=== PATIENT | male | born 1960 | race Caucasian/White ===

== ENCOUNTER 2017-04-27 09:29 | Emergency (ER) | payer MEDICARE, OTHER ==
[~2017-04-27] VITALS: Ht 167.6 cm; Wt 67.9 kg
[~2017-04-27 09:29] MED LIST: HYDR-3965 PO; METF10002 PO
[2017-04-27 09:35] VITALS: BP 185/111
== END 2017-04-27 10:45 | disposition home or self-care (01) ==
LOC: ER 09:30
DX: G89.29 Other chronic pain (principal); E78.00 Pure hypercholesterolemia, unspecified; I10 Essential (primary) hypertension; E11.9 Type 2 diabetes mellitus without complications; M06.9 Rheumatoid arthritis, unspecified; Z79.84 Long term (current) use of oral hypoglycemic drugs
CPT/HCPCS: 96372; 99283; J2270

== ENCOUNTER 2017-05-04 09:09 | Emergency (ER) | payer MEDICARE, OTHER ==
[~2017-05-04] VITALS: Ht 170.2 cm; Wt 69.9 kg
[2017-05-04] MEDS ORDERED: ketorolac trometh inj. 60 MG/2 ML VIAL IM ONE (12:15)
[2017-05-04] MEDS ORDERED: HYDROmorphone inj. 0.5 MG/0.5 ML DISP.SYRIN IM ONE (12:15)
[2017-05-04] MEDS ORDERED: HYDROmorphone 1 mg/ml syringe IM ONE (12:20)
[2017-05-04 12:54] VITALS: BP 172/98
== END 2017-05-04 13:01 | disposition home or self-care (01) ==
LOC: ER 09:09
DX: M06.9 Rheumatoid arthritis, unspecified (principal); G89.29 Other chronic pain; F17.200 Nicotine dependence, unspecified, uncomplicated; E78.00 Pure hypercholesterolemia, unspecified; I10 Essential (primary) hypertension; E11.9 Type 2 diabetes mellitus without complications; M19.90 Unspecified osteoarthritis, unspecified site; Z79.899 Other long term (current) drug therapy
CPT/HCPCS: 96372; 99284; J1170; J1885

== ENCOUNTER 2017-05-06 04:23 | Emergency (ER) | payer MEDICARE, OTHER ==
[~2017-05-06] VITALS: Ht 170.2 cm; Wt 70.4 kg
[2017-05-06] MEDS ORDERED: mag hydrox/Alum hydrox/simeth 30ml oral suspension PO ONE (04:50)
[2017-05-06] MEDS ORDERED: pantoprazole 40mg Tablet.DR PO ONE (04:50)
[2017-05-06] MEDS ORDERED: LIDOcaine Viscous 15ml cup PO ONE (04:50)
[2017-05-06 05:07] LABS: BASOPHILS # (AUTO) 0.1 X10'3 (0-0.2); BASOPHILS % (AUTO) 0.6 % (0-1); EOSINOPHILS # (AUTO) 0.5 X10'3 (0-0.9); EOSINOPHILS % (AUTO) 5.6 % (0-6); HEMATOCRIT 25.4 % (42.0-52.0); HEMOGLOBIN 8.2 g/dl (14.0-17.9); LYMPHOCYTES # (AUTO) 2.4 X10'3 (1.1-4.8); LYMPHOCYTES % (AUTO) 25.8 % (21-51); MEAN CORPUSCULAR HEMOGLOBIN 25.6 PG (27.0-31.0); MEAN CORPUSCULAR HGB CONC 32.2 % (33.0-36.5); MEAN CORPUSCULAR VOLUME 79.6 FL (78-98); MEAN PLATELET VOLUME 7.2 FL (7.4-10.4); MONOCYTES # (AUTO) 0.4 X10'3 (0-0.9); MONOCYTES % (AUTO) 3.8 % (2-12); NEUTROPHILS # (AUTO) 6.1 X10'3 (1.8-7.7); NEUTROPHILS % (AUTO) 64.2 % (42-75); PLATELET COUNT 747 X10'3 (140-440); RED BLOOD COUNT 3.19 X10'6 (4.70-6.10); RED CELL DISTRIBUTION WIDTH 16.5 % (11.5-14.5); WHITE BLOOD COUNT 9.4 X10'3 (4.5-11.0)
[2017-05-06 05:37] LABS: ALANINE AMINOTRANSFERASE 17 U/L (12-78); ALBUMIN 1.8 G/DL (3.4-5.0); ALBUMIN/GLOBULIN RATIO 0.3 (1.1-1.5); ALKALINE PHOSPHATASE 164 IU/L (46-116); ANION GAP 6 (8-16); ASPARTATE AMINO TRANSFERASE 13 U/L (10-37); BILIRUBIN,TOTAL 0.2 MG/DL (0.1-1.0); BLOOD UREA NITROGEN 35 MG/DL (7-18); BUN/CREATININE RATIO 19.1 (5.4-32.0); CALCIUM 8.5 MG/DL (8.5-10.1); CHLORIDE 107 MMOL/L (99-107); CREATININE 1.83 MG/DL (0.60-1.10); GLUCOSE 161 MG/DL (70-104); LIPASE 196 U/L (73-393); MAGNESIUM 1.5 MG/DL (1.5-2.4); POTASSIUM 5.2 MMOL/L (3.5-5.1); SODIUM 133 MMOL/L (135-145); TOTAL CARBON DIOXIDE 20.3 MMOL/L (24-32); TOTAL PROTEIN 7.3 G/DL (6.4-8.2); eGFR 38 ML/MIN
[2017-05-06 05:48] VITALS: BP 158/89
[2017-05-06] MEDS ORDERED: OMEP40CA37 PO (05:51)
== END 2017-05-06 06:20 | disposition home or self-care (01) ==
LOC: ER 04:24
DX: I12.9 Hypertensive chronic kidney disease with stage 1 through stage 4 chronic kidney disease, or unspecified chronic kidney disease (principal); N18.9 Chronic kidney disease, unspecified; D63.1 Anemia in chronic kidney disease; E87.5 Hyperkalemia; R10.13 Epigastric pain; E11.22 Type 2 diabetes mellitus with diabetic chronic kidney disease; Z79.84 Long term (current) use of oral hypoglycemic drugs; E78.00 Pure hypercholesterolemia, unspecified; M06.9 Rheumatoid arthritis, unspecified
CPT/HCPCS: 36415; 80053; 83690; 83735; 85025; 99284

== ENCOUNTER 2017-05-15 07:21 | Emergency (ER) | payer MEDICARE, OTHER ==
[~2017-05-15] VITALS: Ht 5535.5 cm; Wt 72.7 kg
[~2017-05-15 07:21] MED LIST changes: +OMEP40CA37 PO
[2017-05-15] MEDS ORDERED: HYDROmorphone 1 mg/ml syringe IM ONE (08:05)
[2017-05-15] MEDS ORDERED: ketorolac trometh inj. 60 MG/2 ML VIAL IM ONE (08:05)
[2017-05-15 09:24] VITALS: BP 180/110
== END 2017-05-15 09:25 | disposition home or self-care (01) ==
LOC: ER 07:22
DX: M06.9 Rheumatoid arthritis, unspecified (principal); E11.9 Type 2 diabetes mellitus without complications; I10 Essential (primary) hypertension; E78.00 Pure hypercholesterolemia, unspecified; F17.200 Nicotine dependence, unspecified, uncomplicated; Z86.73 Personal history of transient ischemic attack (TIA), and cerebral infarction without residual deficits
CPT/HCPCS: 96372; 99284; J1170; J1885

== ENCOUNTER 2017-05-21 13:32 | Emergency (ER) | payer MEDICARE, OTHER ==
[~2017-05-21] VITALS: Ht 170.2 cm; Wt 74.1 kg
[~2017-05-21 13:32] MED LIST changes: -HYDR-3965 PO
[2017-05-21 16:29] LABS: BASOPHILS # (AUTO) 0.1 X10'3 (0-0.2); BASOPHILS % (AUTO) 0.7 % (0-1); EOSINOPHILS # (AUTO) 0.1 X10'3 (0-0.9); EOSINOPHILS % (AUTO) 0.6 % (0-6); HEMATOCRIT 25.3 % (42.0-52.0); HEMOGLOBIN 8.5 g/dl (14.0-17.9); LYMPHOCYTES # (AUTO) 2.1 X10'3 (1.1-4.8); LYMPHOCYTES % (AUTO) 18.3 % (21-51); MEAN CORPUSCULAR HGB CONC 33.6 % (33.0-36.5); MEAN CORPUSCULAR VOLUME 77.5 FL (78-98); MEAN PLATELET VOLUME 7.5 FL (7.4-10.4); MONOCYTES # (AUTO) 0.3 X10'3 (0-0.9); MONOCYTES % (AUTO) 2.5 % (2-12); NEUTROPHILS # (AUTO) 8.7 X10'3 (1.8-7.7); NEUTROPHILS % (AUTO) 77.9 % (42-75); PLATELET COUNT 555 X10'3 (140-440); RED BLOOD COUNT 3.26 X10'6 (4.70-6.10); RED CELL DISTRIBUTION WIDTH 15.9 % (11.5-14.5); WHITE BLOOD COUNT 11.3 X10'3 (4.5-11.0)
[2017-05-21 16:46] LABS: ALANINE AMINOTRANSFERASE 28 U/L (12-78); ALBUMIN/GLOBULIN RATIO 0.4 (1.1-1.5); ALKALINE PHOSPHATASE 193 IU/L (46-116); ANION GAP 10 (8-16); ASPARTATE AMINO TRANSFERASE 19 U/L (10-37); BILIRUBIN,TOTAL 0.2 MG/DL (0.1-1.0); BLOOD UREA NITROGEN 50 MG/DL (7-18); CALCIUM 8.1 MG/DL (8.5-10.1); CHLORIDE 101 MMOL/L (99-107); GLUCOSE 203 MG/DL (70-104); POTASSIUM 4.6 MMOL/L (3.5-5.1); SODIUM 133 MMOL/L (135-145); TOTAL PROTEIN 7.1 G/DL (6.4-8.2); eGFR 27 ML/MIN
[2017-05-21 17:17] LABS: D-DIMER 5.64 MG/L FEU (0-0.50)
[2017-05-21 17:28] VITALS: BP 167/89
== END 2017-05-21 17:31 | disposition home or self-care (01) ==
LOC: ER 13:32
DX: I13.0 Hypertensive heart and chronic kidney disease with heart failure and stage 1 through stage 4 chronic kidney disease, or unspecified chronic kidney disease (principal); E11.22 Type 2 diabetes mellitus with diabetic chronic kidney disease; N18.9 Chronic kidney disease, unspecified; I50.9 Heart failure, unspecified; E11.65 Type 2 diabetes mellitus with hyperglycemia; D64.9 Anemia, unspecified; D47.3 Essential (hemorrhagic) thrombocythemia; R59.1 Generalized enlarged lymph nodes; G43.909 Migraine, unspecified, not intractable, without status migrainosus; E78.00 Pure hypercholesterolemia, unspecified; M19.90 Unspecified osteoarthritis, unspecified site; F17.200 Nicotine dependence, unspecified, uncomplicated; Z86.73 Personal history of transient ischemic attack (TIA), and cerebral infarction without residual deficits; K21.9 Gastro-esophageal reflux disease without esophagitis
CPT/HCPCS: 36415; 80053; 83880; 85025; 85379; 93971; 99285

== ENCOUNTER 2017-06-12 22:36 | Inpatient (IN) | payer MEDICARE, OTHER ==
[~2017-06-12] VITALS: Ht 170.2 cm; Wt 150.0 kg
[~2017-06-12 22:36] MED LIST changes: -OMEP40CA37 PO
[2017-06-12] MEDS ORDERED: normal saline 1000ML IV soln IVB ONE (22:50)
[2017-06-12 23:01] LABS: BASOPHILS # (AUTO) 0.2 X10'3 (0-0.2); BASOPHILS % (AUTO) 3.3 % (0-1); EOSINOPHILS # (AUTO) 0.3 X10'3 (0-0.9); EOSINOPHILS % (AUTO) 4.8 % (0-6); HEMATOCRIT 22.2 % (42.0-52.0); HEMOGLOBIN 7.1 g/dl (14.0-17.9); LYMPHOCYTES # (AUTO) 1.6 X10'3 (1.1-4.8); LYMPHOCYTES % (AUTO) 23.3 % (21-51); MEAN CORPUSCULAR HEMOGLOBIN 24.5 PG (27.0-31.0); MEAN CORPUSCULAR HGB CONC 31.9 % (33.0-36.5); MEAN CORPUSCULAR VOLUME 76.6 FL (78-98); MEAN PLATELET VOLUME 6.6 FL (7.4-10.4); MONOCYTES # (AUTO) 0.3 X10'3 (0-0.9); MONOCYTES % (AUTO) 4.2 % (2-12); NEUTROPHILS # (AUTO) 4.5 X10'3 (1.8-7.7); NEUTROPHILS % (AUTO) 64.4 % (42-75); PLATELET COUNT 529 X10'3 (140-440); RED CELL DISTRIBUTION WIDTH 18.5 % (11.5-14.5)
[2017-06-12 23:11] LABS: ANISOCYTOSIS 2+; ELLIPTOCYTES FEW; HYPOCHROMASIA 1+; MICROCYTOSIS 2+; PLATELET ESTIMATE INCREASED; POLYCHROMASIA FEW
[2017-06-12 23:12] LABS: POIKILOCYTOSIS FEW
[2017-06-12 23:14] LABS: PARTIAL THROMBOPLASTIN TIME 35 SECONDS (22-32); PROTHROMBIN TIME 10.5 SECONDS (9.0-12.0)
[2017-06-12 23:26] LABS: ALANINE AMINOTRANSFERASE 16 U/L (12-78); ALBUMIN 1.7 G/DL (3.4-5.0); ALBUMIN/GLOBULIN RATIO 0.3 (1.1-1.5); ALKALINE PHOSPHATASE 161 IU/L (46-116); ANION GAP 11 (8-16); BILIRUBIN,TOTAL 0.2 MG/DL (0.1-1.0); BLOOD UREA NITROGEN 58 MG/DL (7-18); BUN/CREATININE RATIO 19.1 (5.4-32.0); CHLORIDE 107 MMOL/L (99-107); CREATININE 3.04 MG/DL (0.60-1.10); GLUCOSE 132 MG/DL (70-104); MAGNESIUM 1.7 MG/DL (1.5-2.4); SODIUM 133 MMOL/L (135-145); TOTAL CARBON DIOXIDE 15.2 MMOL/L (24-32); TOTAL PROTEIN 6.8 G/DL (6.4-8.2); eGFR 21 ML/MIN
[2017-06-12 23:29] LABS: ASPARTATE AMINO TRANSFERASE 15 U/L (10-37)
[2017-06-12 23:31] LABS: POTASSIUM 8.1 MMOL/L (3.5-5.1)
[2017-06-12] MEDS ORDERED: calcium gluconate inj. 3 GM in normal saline 100ml IV soln 70 ML IV ONE (23:33)
[2017-06-12] MEDS ORDERED: dextrose 50%-water 50ml dispensing syringe IV ONE (23:35)
[2017-06-12] MEDS ORDERED: insulin regular, human 10 units/0.1 ml syringe IV ONE (23:35)
[2017-06-12] MEDS ORDERED: sodium bicarbonate (8.4%) 1 mEq/ml syringe IV ONE (23:35)
[2017-06-12] MEDS ORDERED: calcium gluconate 0.46mEq/mL (100mg/mL) inj IV ONE (23:37)
[2017-06-12] MEDS ORDERED: sodium polystyrene sulfonate 15gm/60ml oral suspension PO ONE (23:45)
[2017-06-13] VITALS (10 sets, daily range): BP systolic 132–159; BP diastolic 64–90
[2017-06-13 00:09] LABS: ALBUMIN 1.8 G/DL (3.4-5.0); ANION GAP 11 (8-16); BLOOD UREA NITROGEN 56 MG/DL (7-18); BUN/CREATININE RATIO 19.2 (5.4-32.0); CALCIUM 8.6 MG/DL (8.5-10.1); CHLORIDE 108 MMOL/L (99-107); CREATININE 2.91 MG/DL (0.60-1.10); GLUCOSE 116 MG/DL (70-104); SODIUM 135 MMOL/L (135-145); eGFR 22 ML/MIN
[2017-06-13 00:12] LABS: POTASSIUM 8.2 MMOL/L (3.5-5.1)
[2017-06-13 00:53] LABS: CLARITY,URINE CLEAR (Clear); COLOR,URINE YELLOW (Yellow); GLUCOSE, URINE NEGATIVE (Neg); KETONES,URINE NEGATIVE (Neg); LEUKOCYTE ESTERASE ,URINE NEGATIVE (Neg); NITRITES, URINE NEGATIVE (Neg); OCCULT BLOOD,URINE TRACE-INTACT (Neg); PROTEIN,URINE >=300 mg/dl (Neg); UROBILINOGEN,URINE 0.2 E.U/dL (0.2-1.0)
[2017-06-13 00:57] LABS: UA COLLECTION TYPE CLN CATCH MIDSTREAM
[2017-06-13 00:58] LABS: RBC,URINE 0-2 /HPF (0-2); WBC,URINE 0-4 /HPF (0-4)
[2017-06-13 00:59] LABS: BACTERIA,URINE NONE SEEN /HPF (Neg); MUCUS STRANDS NONE SEEN /LPF (Neg); SQUAMOUS EPITHELIAL CELL,UR FEW /LPF (FEW)
[2017-06-13] MEDS ORDERED: normal saline 1000ML IV soln IVB ONE (01:00)
[2017-06-13 01:03] LABS: URINE AMPHETAMINE SCREEN NEGATIVE (Neg); URINE BARBITUATE SCREEN NEGATIVE (Neg); URINE BENZODIAZEPINES SCREEN NEGATIVE (Neg); URINE CANNABINOID SCREEN NEGATIVE (Neg); URINE COCAINE SCREEN NEGATIVE (Neg); URINE METHADONE SCREEN NEGATIVE (Neg); URINE OPIATE SCREEN POSITIVE (Neg); URINE PHENCYCLIDINE SCREEN NEGATIVE (Neg)
[2017-06-13] MEDS ORDERED: dextrose 50%-water 50ml dispensing syringe IV ONE (01:20)
[2017-06-13 02:05] LABS: ABG BASE EXCESS -12.7 mmol/L (-2.0-3.0); ABG HCO3 13.6 mmol/L (22.0-26.0); ABG OXYGEN SATURATION 97.1 % (95-98); ABG PCO2 (T) 31.8 mmHg (35.0-48.0); ABG PH (T) 7.246 (7.350-7.450); ALLEN'S TEST Positive; FCOHb 3.4 % (0.5-1.5); FMetHb 0.3 % (0.3-1.12); FO2Hb 93.5 % (94-100); PATIENT TEMPERATURE 36.7; RESPIRATORY RATE (OBSERVED) 18 b/min
[2017-06-13] MEDS ORDERED: HYDROcodone/acetaminophen 10/325mg tab PO ONE (02:05)
[2017-06-13] MEDS ORDERED: sodium bicarbonate (8.4%) 1 mEq/ml syringe IV ONE (02:20)
[2017-06-13] MEDS ORDERED: morphine 2 MG/ML inj. syringe IV PRN (02:30)
[2017-06-13] MEDS ORDERED: acetaminophen 325mg tablet PO PRN (02:30)
[2017-06-13] MEDS ORDERED: ondansetron/PF 4mg/2ml inj IV PRN (02:30)
[2017-06-13] MEDS ORDERED: albuterol 2.5 MG/3 ML nebule NEB ONE (02:30)
[2017-06-13] MEDS ORDERED: glucagon, human recombinant 1mg kit SUBCUT PRN (02:35)
[2017-06-13] MEDS ORDERED: dextrose ORAL solution 15 GM/59 ML bottle PO PRN ×2 (02:35)
[2017-06-13] MEDS ORDERED: dextrose 50%-water 50ml dispensing syringe IV PRN ×2 (02:35)
[2017-06-13] MEDS ORDERED: MESSAGE TO PHARMACY PO ONE (02:35)
[2017-06-13 02:43] LABS: UA EOSINOPHILS FEW EOS /HPF
[2017-06-13 03:02] LABS: TOTAL PROTEIN,URINE RANDOM 275.5 MG/DL
[2017-06-13] MEDS: sodium bicarbonate (8.4%) inj. 150 MEQ in dextrose 5%-water 1,000 ML IV SCH ×3 (03:30→19:12)
[2017-06-13] MEDS: fludrocortisone acetate 0.1mg tablet PO SCH ×2 (03:46→07:34)
[2017-06-13 07:46] LABS: ALBUMIN 1.7 G/DL (3.4-5.0); ANION GAP 12 (8-16); BLOOD UREA NITROGEN 47 MG/DL (7-18); BUN/CREATININE RATIO 19.7 (5.4-32.0); CALCIUM 8.2 MG/DL (8.5-10.1); CHLORIDE 110 MMOL/L (99-107); CREATININE 2.38 MG/DL (0.60-1.10); GLUCOSE 111 MG/DL (70-104); SODIUM 140 MMOL/L (135-145); TOTAL CARBON DIOXIDE 18.4 MMOL/L (24-32); eGFR 28 ML/MIN
[2017-06-13 07:48] LABS: POTASSIUM 6.2 MMOL/L (3.5-5.1)
[2017-06-13] MEDS: HYDROcodone/acetaminophen 5mg/325mg tablet PO PRN ×2 (10:57→23:15)
[2017-06-13 11:53] LABS: BASOPHILS # (AUTO) 0.2 X10'3 (0-0.2); BASOPHILS % (AUTO) 2.1 % (0-1); EOSINOPHILS # (AUTO) 0.4 X10'3 (0-0.9); EOSINOPHILS % (AUTO) 5.1 % (0-6); HEMATOCRIT 22.6 % (42.0-52.0); HEMOGLOBIN 7.3 g/dl (14.0-17.9); LYMPHOCYTES # (AUTO) 1.3 X10'3 (1.1-4.8); LYMPHOCYTES % (AUTO) 17.4 % (21-51); MEAN CORPUSCULAR HEMOGLOBIN 24.4 PG (27.0-31.0); MEAN CORPUSCULAR HGB CONC 32.5 % (33.0-36.5); MEAN CORPUSCULAR VOLUME 75.2 FL (78-98); MEAN PLATELET VOLUME 6.8 FL (7.4-10.4); MONOCYTES # (AUTO) 0.2 X10'3 (0-0.9); MONOCYTES % (AUTO) 3.1 % (2-12); NEUTROPHILS # (AUTO) 5.3 X10'3 (1.8-7.7); NEUTROPHILS % (AUTO) 72.3 % (42-75); PLATELET COUNT 537 X10'3 (140-440); RED BLOOD COUNT 3.01 X10'6 (4.70-6.10); RED CELL DISTRIBUTION WIDTH 18.5 % (11.5-14.5); WHITE BLOOD COUNT 7.4 X10'3 (4.5-11.0)
[2017-06-13 13:20] LABS: ALBUMIN 1.4 G/DL (3.4-5.0); ANION GAP 10 (8-16); BLOOD UREA NITROGEN 39 MG/DL (7-18); BUN/CREATININE RATIO 19.6 (5.4-32.0); CALCIUM 7.8 MG/DL (8.5-10.1); CHLORIDE 108 MMOL/L (99-107); CREATININE 1.99 MG/DL (0.60-1.10); GLUCOSE 160 MG/DL (70-104); POTASSIUM 5.2 MMOL/L (3.5-5.1); SODIUM 139 MMOL/L (135-145); TOTAL CARBON DIOXIDE 20.6 MMOL/L (24-32); eGFR 35 ML/MIN
[2017-06-13 15:31] LABS: % IRON SATURATION 19 % (11-46); FERRITIN 116 NG/ML (26-388); IRON 33 UG/DL (53-167); TOTAL IRON BINDING CAPACITY 172 UG/DL (259-388)
[2017-06-13] MEDS: morphine 4 MG/ML inj SYRINge IV PRN ×2 (15:57→20:23)
[2017-06-13 17:07] LABS: SODIUM,URINE RANDOM 73 MEQ/L
[2017-06-13] MEDS ORDERED: QUET25TA34 PO (17:27)
[2017-06-13] MEDS ORDERED: BACDS PO (17:27)
[2017-06-13] MEDS ORDERED: DOXA1TAB2 PO (17:27)
[2017-06-13] MEDS ORDERED: FURO40TA4 PO (17:27)
[2017-06-13] MEDS ORDERED: HYDR-3972 PO (17:27)
[2017-06-13] MEDS ORDERED: ATOR40TA72 PO (17:27)
[2017-06-13] MEDS ORDERED: GABA-532 PO (17:27)
[2017-06-13] MEDS ORDERED: METH2.5T55 PO (17:27)
[2017-06-13] MEDS ORDERED: LISI10TA4 PO (17:27)
[2017-06-13] MEDS: heparin, porcine 5000 units/ml vial SQ SCH (19:12)
[2017-06-13 20:02] LABS: ALBUMIN 1.6 G/DL (3.4-5.0); ANION GAP 10 (8-16); BLOOD UREA NITROGEN 36 MG/DL (7-18); BUN/CREATININE RATIO 17.1 (5.4-32.0); CHLORIDE 104 MMOL/L (99-107); CREATININE 2.11 MG/DL (0.60-1.10); GLUCOSE 196 MG/DL (70-104); POTASSIUM 5.3 MMOL/L (3.5-5.1); SODIUM 136 MMOL/L (135-145); TOTAL CARBON DIOXIDE 21.6 MMOL/L (24-32); eGFR 33 ML/MIN
[2017-06-13] MEDS: insulin glargine (Lantus) pen - multi-dose SQ SCH (20:29)
[2017-06-14] MEDS: morphine 4 MG/ML inj SYRINge IV PRN ×4 (00:20→19:11)
[2017-06-14 02:00] VITALS: BP 154/83
[2017-06-14] MEDS: sodium bicarbonate (8.4%) inj. 150 MEQ in dextrose 5%-water 1,000 ML IV SCH ×2 (02:46→08:59)
[2017-06-14 05:43] LABS: BASOPHILS # (AUTO) 0.1 X10'3 (0-0.2); BASOPHILS % (AUTO) 2.5 % (0-1); EOSINOPHILS # (AUTO) 0.2 X10'3 (0-0.9); EOSINOPHILS % (AUTO) 4.3 % (0-6); HEMATOCRIT 22.1 % (42.0-52.0); HEMOGLOBIN 7.3 g/dl (14.0-17.9); LYMPHOCYTES # (AUTO) 1.8 X10'3 (1.1-4.8); LYMPHOCYTES % (AUTO) 33.1 % (21-51); MEAN CORPUSCULAR HEMOGLOBIN 24.8 PG (27.0-31.0); MEAN CORPUSCULAR HGB CONC 33.1 % (33.0-36.5); MEAN PLATELET VOLUME 6.8 FL (7.4-10.4); MONOCYTES # (AUTO) 0.2 X10'3 (0-0.9); MONOCYTES % (AUTO) 3.4 % (2-12); NEUTROPHILS # (AUTO) 3.1 X10'3 (1.8-7.7); NEUTROPHILS % (AUTO) 56.7 % (42-75); PLATELET COUNT 534 X10'3 (140-440); RED BLOOD COUNT 2.94 X10'6 (4.70-6.10); RED CELL DISTRIBUTION WIDTH 17.6 % (11.5-14.5); WHITE BLOOD COUNT 5.4 X10'3 (4.5-11.0)
[2017-06-14 05:53] LABS: ALBUMIN 1.3 G/DL (3.4-5.0); ANION GAP 8 (8-16); BLOOD UREA NITROGEN 29 MG/DL (7-18); BUN/CREATININE RATIO 18.7 (5.4-32.0); CALCIUM 7.9 MG/DL (8.5-10.1); CHLORIDE 106 MMOL/L (99-107); CREATININE 1.55 MG/DL (0.60-1.10); GLUCOSE 95 MG/DL (70-104); MAGNESIUM 1.2 MG/DL (1.5-2.4); PHOSPHORUS 3.2 MG/DL (2.3-4.5); SODIUM 141 MMOL/L (135-145); TOTAL CARBON DIOXIDE 27.3 MMOL/L (24-32); eGFR 46 ML/MIN
[2017-06-14 06:00] VITALS: BP 150/78
[2017-06-14] MEDS ORDERED: magnesium Cl slow-release 64mg tablet PO PRN (06:55)
[2017-06-14] MEDS ORDERED: potassium Cl 20 mEq SR tablet PO PRN ×2 (06:55)
[2017-06-14] MEDS: heparin, porcine 5000 units/ml vial SQ SCH ×2 (07:39→19:15)
[2017-06-14] MEDS: insulin Lispro (HumaLOG) vial - multi-dose SQ SCH ×2 (08:46→13:31)
[2017-06-14 11:00] VITALS: BP 160/83
[2017-06-14 15:00] VITALS: BP 130/69
[2017-06-14 17:09] LABS: BASOPHILS # (AUTO) 0.1 X10'3 (0-0.2); BASOPHILS % (AUTO) 1.8 % (0-1); EOSINOPHILS # (AUTO) 0.1 X10'3 (0-0.9); EOSINOPHILS % (AUTO) 1.7 % (0-6); HEMATOCRIT 24.1 % (42.0-52.0); HEMOGLOBIN 7.9 g/dl (14.0-17.9); LYMPHOCYTES # (AUTO) 1.3 X10'3 (1.1-4.8); LYMPHOCYTES % (AUTO) 21.6 % (21-51); MEAN CORPUSCULAR HEMOGLOBIN 24.7 PG (27.0-31.0); MEAN CORPUSCULAR HGB CONC 32.9 % (33.0-36.5); MEAN CORPUSCULAR VOLUME 75.1 FL (78-98); MEAN PLATELET VOLUME 6.4 FL (7.4-10.4); MONOCYTES # (AUTO) 0.2 X10'3 (0-0.9); NEUTROPHILS # (AUTO) 4.3 X10'3 (1.8-7.7); NEUTROPHILS % (AUTO) 70.9 % (42-75); PLATELET COUNT 556 X10'3 (140-440); WHITE BLOOD COUNT 6.1 X10'3 (4.5-11.0)
[2017-06-14] MEDS: HYDROcodone/acetaminophen 5mg/325mg tablet PO PRN (17:24)
[2017-06-14 17:36] LABS: ANISOCYTOSIS 2+; BURR CELLS FEW; ELLIPTOCYTES FEW; MICROCYTOSIS 2+; PLATELET ESTIMATE INCREASED; TARGET CELLS FEW
[2017-06-14 19:00] VITALS: BP 132/65
[2017-06-14] MEDS: insulin glargine (Lantus) pen - multi-dose SQ SCH (21:00)
[2017-06-14 23:00] VITALS: BP 152/83
[2017-06-15 03:00] VITALS: BP 156/79
[2017-06-15 05:58] LABS: BASOPHILS # (AUTO) 0.1 X10'3 (0-0.2); BASOPHILS % (AUTO) 2.6 % (0-1); EOSINOPHILS # (AUTO) 0.3 X10'3 (0-0.9); LYMPHOCYTES # (AUTO) 1.9 X10'3 (1.1-4.8); LYMPHOCYTES % (AUTO) 35.5 % (21-51); MEAN CORPUSCULAR HEMOGLOBIN 24.4 PG (27.0-31.0); MEAN CORPUSCULAR HGB CONC 32.2 % (33.0-36.5); MEAN CORPUSCULAR VOLUME 75.7 FL (78-98); MEAN PLATELET VOLUME 6.9 FL (7.4-10.4); MONOCYTES # (AUTO) 0.3 X10'3 (0-0.9); MONOCYTES % (AUTO) 6.7 % (2-12); NEUTROPHILS # (AUTO) 2.6 X10'3 (1.8-7.7); NEUTROPHILS % (AUTO) 50.2 % (42-75); PLATELET COUNT 578 X10'3 (140-440); RED CELL DISTRIBUTION WIDTH 18.1 % (11.5-14.5); WHITE BLOOD COUNT 5.2 X10'3 (4.5-11.0)
[2017-06-15 06:00] VITALS: BP 149/82
[2017-06-15 06:15] LABS: ALBUMIN 1.5 G/DL (3.4-5.0); ANION GAP 9 (8-16); BLOOD UREA NITROGEN 23 MG/DL (7-18); BUN/CREATININE RATIO 16.2 (5.4-32.0); CALCIUM 8.4 MG/DL (8.5-10.1); CHLORIDE 104 MMOL/L (99-107); CREATININE 1.42 MG/DL (0.60-1.10); GLUCOSE 93 MG/DL (70-104); MAGNESIUM 1.3 MG/DL (1.5-2.4); PHOSPHORUS 3.1 MG/DL (2.3-4.5); POTASSIUM 4.5 MMOL/L (3.5-5.1); SODIUM 138 MMOL/L (135-145); TOTAL CARBON DIOXIDE 24.7 MMOL/L (24-32); eGFR 51 ML/MIN
[2017-06-15] MEDS: heparin, porcine 5000 units/ml vial SQ SCH (07:59)
[2017-06-15] MEDS: morphine 4 MG/ML inj SYRINge IV PRN (08:00)
[2017-06-15 09:15] LABS: BASOPHILS # (AUTO) 0.1 X10'3 (0-0.2); EOSINOPHILS # (AUTO) 0.2 X10'3 (0-0.9); EOSINOPHILS % (AUTO) 4.6 % (0-6); HEMATOCRIT 22.9 % (42.0-52.0); HEMOGLOBIN 7.5 g/dl (14.0-17.9); LYMPHOCYTES # (AUTO) 1.5 X10'3 (1.1-4.8); LYMPHOCYTES % (AUTO) 30.4 % (21-51); MEAN CORPUSCULAR HEMOGLOBIN 24.5 PG (27.0-31.0); MEAN CORPUSCULAR HGB CONC 32.8 % (33.0-36.5); MEAN CORPUSCULAR VOLUME 74.9 FL (78-98); MEAN PLATELET VOLUME 6.7 FL (7.4-10.4); MONOCYTES # (AUTO) 0.3 X10'3 (0-0.9); MONOCYTES % (AUTO) 6.8 % (2-12); NEUTROPHILS # (AUTO) 2.8 X10'3 (1.8-7.7); NEUTROPHILS % (AUTO) 56.2 % (42-75); PLATELET COUNT 521 X10'3 (140-440); RED BLOOD COUNT 3.06 X10'6 (4.70-6.10); RED CELL DISTRIBUTION WIDTH 17.8 % (11.5-14.5); WHITE BLOOD COUNT 5.1 X10'3 (4.5-11.0)
[2017-06-15] MEDS: insulin Lispro (HumaLOG) vial - multi-dose SQ SCH (09:46)
[2017-06-15] MEDS: HYDROcodone/acetaminophen 5mg/325mg tablet PO PRN (10:35)
[2017-06-15 11:00] VITALS: BP 155/90
[2017-06-15] MEDS ORDERED: epoetin 20,000 units/ml inj SQ ONE (12:00)
[2017-06-15] MEDS ORDERED: CARV3.12 PO (12:07)
[2017-06-15] MEDS ORDERED: ASCO100T9 PO (12:15)
[2017-06-15] MEDS ORDERED: FERR325T35 PO (12:15)
[2017-06-15 15:00] VITALS: BP 156/93
[2017-06-15] MEDS ORDERED: magnesium oxide 400mg tablet PO ONE (15:30)
[2017-06-15] MEDS ORDERED: MAGN400C PO (15:32)
[2017-06-15] MEDS ORDERED: CLIN150C2 PO (15:42)
== END 2017-06-15 15:40 | disposition home or self-care (01) | DRG 682 ==
LOC: ER 22:37 → ED HOLD 06-13 02:27 → PCU 3S 06-13 03:35
PROVIDERS: ADMIT Family Medicine; ATTEND Internal Medicine
PROC: 30233N1 Transfusion of Nonautologous Red Blood Cells into Peripheral Vein, Percutaneous Approach (ICD-10-PCS; principal; 2017-06-13)
DX: N17.9 Acute kidney failure, unspecified (principal); E43 Unspecified severe protein-calorie malnutrition; E11.22 Type 2 diabetes mellitus with diabetic chronic kidney disease; E11.65 Type 2 diabetes mellitus with hyperglycemia; D50.9 Iron deficiency anemia, unspecified; F17.210 Nicotine dependence, cigarettes, uncomplicated; I13.0 Hypertensive heart and chronic kidney disease with heart failure and stage 1 through stage 4 chronic kidney disease, or unspecified chronic kidney disease; Z68.43 Body mass index [BMI] 50.0-59.9, adult; E87.2 Acidosis; E87.5 Hyperkalemia; G43.909 Migraine, unspecified, not intractable, without status migrainosus; G25.3 Myoclonus; I50.9 Heart failure, unspecified; N18.9 Chronic kidney disease, unspecified; M06.9 Rheumatoid arthritis, unspecified; E78.00 Pure hypercholesterolemia, unspecified; E78.5 Hyperlipidemia, unspecified; M19.90 Unspecified osteoarthritis, unspecified site; Z79.84 Long term (current) use of oral hypoglycemic drugs; Z79.899 Other long term (current) drug therapy; Z86.73 Personal history of transient ischemic attack (TIA), and cerebral infarction without residual deficits; Z82.3 Family history of stroke; Z83.3 Family history of diabetes mellitus; Z84.1 Family history of disorders of kidney and ureter; Z84.89 Family history of other specified conditions
CPT/HCPCS: 36415; 36600; 70450; 71045; 74176; 80048; 80053; 80305; 81001; 82570; 82728; 82803; 82948; 83036; 83540; 83550; 83605; 83735; 84100; 84133; 84156; 84300; 84443; 84484; 85018; 85025; 85610; 85730; 86885; 86900; 86901; 86920; 87070; 87207; 93005; 96361; 96365; 96375; 99291; A6212; A6222; A6258; A6402; J0610; J0885; J1644; J1815; J2270; J7030; P9016

== ENCOUNTER 2017-06-29 08:35 | Inpatient (IN) | payer MEDICARE, OTHER ==
[~2017-06-29] VITALS: Ht 170.2 cm; Wt 75.0 kg
[~2017-06-29 08:35] MED LIST changes: +ASCO100T9 PO; +ATOR40TA72 PO; +CARV3.12 PO; +CLIN150C2 PO; +DOXA1TAB2 PO; +FERR325T35 PO; +GABA-532 PO; +HYDR-3972 PO; +MAGN400C PO; +METH2.5T55 PO; +QUET25TA34 PO
[2017-06-29 09:20] LABS: BASOPHILS # (AUTO) 0.1 X10'3 (0-0.2); BASOPHILS % (AUTO) 0.5 % (0-1); EOSINOPHILS # (AUTO) 0.3 X10'3 (0-0.9); EOSINOPHILS % (AUTO) 3.2 % (0-6); HEMOGLOBIN 7.1 g/dl (14.0-17.9); MEAN CORPUSCULAR HEMOGLOBIN 25.1 PG (27.0-31.0); MEAN CORPUSCULAR HGB CONC 32.7 % (33.0-36.5); MEAN CORPUSCULAR VOLUME 76.7 FL (78-98); MEAN PLATELET VOLUME 7.3 FL (7.4-10.4); MONOCYTES # (AUTO) 0.3 X10'3 (0-0.9); NEUTROPHILS # (AUTO) 8.5 X10'3 (1.8-7.7); NEUTROPHILS % (AUTO) 83.3 % (42-75); PLATELET COUNT 568 X10'3 (140-440); RED BLOOD COUNT 2.83 X10'6 (4.70-6.10); RED CELL DISTRIBUTION WIDTH 20.6 % (11.5-14.5); WHITE BLOOD COUNT 10.2 X10'3 (4.5-11.0)
[2017-06-29 09:23] LABS: HEMATOCRIT 21.7 % (42.0-52.0)
[2017-06-29 09:35] LABS: INR 1.1 INR; PARTIAL THROMBOPLASTIN TIME 39 SECONDS (22-32); PROTHROMBIN TIME 11.4 SECONDS (9.0-12.0)
[2017-06-29 09:51] LABS: ALANINE AMINOTRANSFERASE 33 U/L (12-78); ALBUMIN 2.1 G/DL (3.4-5.0); ALBUMIN/GLOBULIN RATIO 0.4 (1.1-1.5); ALKALINE PHOSPHATASE 189 IU/L (46-116); ANION GAP 12 (8-16); ASPARTATE AMINO TRANSFERASE 24 U/L (10-37); BILIRUBIN,TOTAL 0.4 MG/DL (0.1-1.0); BLOOD UREA NITROGEN 52 MG/DL (7-18); BUN/CREATININE RATIO 21.4 (5.4-32.0); CALCIUM 8.3 MG/DL (8.5-10.1); CHLORIDE 108 MMOL/L (99-107); CREATININE 2.43 MG/DL (0.60-1.10); ETHANOL < 0.010 GM/DL (0.0-0.010); GLUCOSE 188 MG/DL (70-104); MAGNESIUM 1.8 MG/DL (1.5-2.4); PHOSPHORUS 4.5 MG/DL (2.3-4.5); SODIUM 137 MMOL/L (135-145); TOTAL CARBON DIOXIDE 16.8 MMOL/L (24-32); TOTAL PROTEIN 7.1 G/DL (6.4-8.2); eGFR 28 ML/MIN
[2017-06-29 10:06] LABS: PLATELET ESTIMATE INCREASED
[2017-06-29 10:07] LABS: POIKILOCYTOSIS 1+
[2017-06-29 10:08] LABS: ANISOCYTOSIS 3+; HYPOCHROMASIA 2+; MICROCYTOSIS 2+; POLYCHROMASIA 1+; ROULEAUX 1+; SCHISTOCYTES FEW
[2017-06-29 10:09] LABS: POTASSIUM 6.9 MMOL/L (3.5-5.1)
[2017-06-29] MEDS ORDERED: albuterol 2.5 MG/3 ML nebule NEB ONE (10:20)
[2017-06-29] MEDS ORDERED: dextrose 50%-water 50ml dispensing syringe IV ONE (10:20)
[2017-06-29] MEDS ORDERED: sodium polystyrene sulfonate 15gm/60ml oral suspension PO ONE ×2 (10:20→13:25)
[2017-06-29] MEDS ORDERED: calcium chloride inj. 1,000 MG in normal saline 100ml IV soln 90 ML IV ONE (10:20)
[2017-06-29] MEDS ORDERED: sodium bicarbonate (8.4%) 1 mEq/ml syringe IV ONE (10:20)
[2017-06-29] MEDS ORDERED: sodium bicarbonate (0.9mEq/ml) 44.6 mEq/50ml syringe IV ONE (10:20)
[2017-06-29] MEDS ORDERED: insulin regular, human 10 units/0.1 ml syringe IV ONE (10:20)
[2017-06-29] MEDS ORDERED: HYDROcodone/acetaminophen 10/325mg tab PO ONE (11:50)
[2017-06-29 12:49] LABS: CLARITY,URINE CLEAR (Clear); COLOR,URINE YELLOW (Yellow); GLUCOSE, URINE 100 mg/dl (Neg); KETONES,URINE NEGATIVE (Neg); LEUKOCYTE ESTERASE ,URINE NEGATIVE (Neg); NITRITES, URINE NEGATIVE (Neg); OCCULT BLOOD,URINE SMALL (Neg); PROTEIN,URINE >=300 mg/dl (Neg); UROBILINOGEN,URINE 0.2 E.U/dL (0.2-1.0)
[2017-06-29 12:56] LABS: UA COLLECTION TYPE URINAL
[2017-06-29 12:57] LABS: BACTERIA,URINE NONE SEEN /HPF (Neg); MUCUS STRANDS FEW /LPF (Neg); RBC,URINE 0-2 /HPF (0-2); SQUAMOUS EPITHELIAL CELL,UR NONE SEEN /LPF (FEW); WBC,URINE NONE SEEN /HPF (0-4)
[2017-06-29 13:01] LABS: URINE AMPHETAMINE SCREEN POSITIVE (Neg); URINE BARBITUATE SCREEN NEGATIVE (Neg); URINE BENZODIAZEPINES SCREEN NEGATIVE (Neg); URINE CANNABINOID SCREEN NEGATIVE (Neg); URINE COCAINE SCREEN NEGATIVE (Neg); URINE METHADONE SCREEN NEGATIVE (Neg); URINE OPIATE SCREEN POSITIVE (Neg); URINE PHENCYCLIDINE SCREEN NEGATIVE (Neg)
[2017-06-29] MEDS ORDERED: mag hydrox/Alum hydrox/simeth 30ml oral suspension PO PRN (13:25)
[2017-06-29] MEDS ORDERED: acetaminophen 325mg tablet PO PRN (13:25)
[2017-06-29] MEDS ORDERED: ondansetron/PF 4mg/2ml inj IV PRN (13:25)
[2017-06-29] MEDS ORDERED: magnesium hydroxide 30ml (MOM) UD suspension PO PRN (13:25)
[2017-06-29] MEDS ORDERED: sodium bicarbonate (8.4%) inj. 100 MEQ in dextrose 5%-water 1,000 ML IV SCH (13:25)
[2017-06-29] MEDS ORDERED: aspirin 81mg tablet.DR PO ONE (13:30)
[2017-06-29] MEDS ORDERED: HYDROcodone/acetaminophen 10/325mg tab PO PRN (16:00)
[2017-06-29 16:18] VITALS: BP 147/91
[2017-06-29] MEDS ORDERED: gabapentin 300mg capsule PO SCH (20:00)
[2017-06-29] MEDS ORDERED: metFORMIN 500mg tablet PO SCH (20:00)
[2017-06-29] MEDS ORDERED: carVEDilol 3.125mg tablet PO SCH (20:00)
[2017-06-29] MEDS ORDERED: ferrous sulfate 325mg tablet PO SCH (20:00)
[2017-06-29] MEDS ORDERED: magnesium oxide 400mg tablet PO SCH (20:00)
[2017-06-30] MEDS ORDERED: enoxaparin 40mg/0.4ml syringe SUBCUT SCH (08:00)
[2017-06-30] MEDS ORDERED: aspirin 81mg tablet.DR PO SCH (08:00)
[2017-06-30] MEDS ORDERED: QUEtiapine 25mg tablet PO SCH (08:00)
[2017-06-30] MEDS ORDERED: atorvastatin 20mg tablet PO SCH (08:00)
[2017-06-30] MEDS ORDERED: doxazosin mesylate 2mg tablet PO SCH (08:00)
[2017-06-30] MEDS ORDERED: ascorbic acid 500mg tablet PO SCH (08:00)
== END 2017-06-29 18:36 | disposition left against medical advice (07) | DRG 683 ==
LOC: ER 08:35 → ED HOLD 13:24
PROVIDERS: ADMIT Family Medicine; ATTEND Emergency Medicine
DX: N17.9 Acute kidney failure, unspecified (principal); G45.9 Transient cerebral ischemic attack, unspecified; E11.22 Type 2 diabetes mellitus with diabetic chronic kidney disease; I13.0 Hypertensive heart and chronic kidney disease with heart failure and stage 1 through stage 4 chronic kidney disease, or unspecified chronic kidney disease; I50.9 Heart failure, unspecified; E87.5 Hyperkalemia; D63.8 Anemia in other chronic diseases classified elsewhere; E78.00 Pure hypercholesterolemia, unspecified; E78.5 Hyperlipidemia, unspecified; Z53.21 Procedure and treatment not carried out due to patient leaving prior to being seen by health care provider; F15.10 Other stimulant abuse, uncomplicated; F17.200 Nicotine dependence, unspecified, uncomplicated; M06.9 Rheumatoid arthritis, unspecified; N18.9 Chronic kidney disease, unspecified; G43.909 Migraine, unspecified, not intractable, without status migrainosus; M19.90 Unspecified osteoarthritis, unspecified site; Z82.3 Family history of stroke; Z83.3 Family history of diabetes mellitus; Z84.1 Family history of disorders of kidney and ureter
CPT/HCPCS: 36415; 70450; 71045; 80053; 80305; 80320; 81001; 82948; 83735; 84100; 84132; 84443; 84484; 85025; 85610; 85730; 93005; 94640; 94760; 96374; 96375; 99291; J1815; J7030

== ENCOUNTER 2020-06-10 11:29 | Emergency (ER) | payer MEDICARE ==
[~2020-06-10] VITALS: Ht 167.6 cm; Wt 75.0 kg
[~2020-06-10 11:29] MED LIST changes: +ALBU18HF2 INH; -ASCO100T9 PO; +ASPI-611 PO; -ATOR40TA72 PO; -CARV3.12 PO; +CARV3.122 PO; -CLIN150C2 PO; -DOXA1TAB2 PO; -FERR325T35 PO; +FURO80TA3 PO; -GABA-532 PO; -HYDR-3972 PO; +HYDR-4070 PO; +INSU100I31 SQ; +LOSA50TA64 PO; -MAGN400C PO; -METF10002 PO; -METH2.5T55 PO; +PREG50CA64 PO; -QUET25TA34 PO
--- NOTE | 2020-06-10 12:13 | NUR ---
PT TO CT
[2020-06-10 12:34] LABS: BASOPHILS # (AUTO) 0.1 X10'3 (0-0.2); BASOPHILS % (AUTO) 1.1 % (0-1); EOSINOPHILS # (AUTO) 0.2 X10'3 (0-0.9); EOSINOPHILS % (AUTO) 3.5 % (0-6); HEMATOCRIT 34.2 % (42.0-52.0); HEMOGLOBIN 11.2 g/dl (14.0-17.9); LYMPHOCYTES # (AUTO) 1.2 X10'3 (1.1-4.8); LYMPHOCYTES % (AUTO) 16.4 % (21-51); MEAN CORPUSCULAR HGB CONC 32.8 g/dL (33.0-36.5); MEAN CORPUSCULAR VOLUME 94.6 FL (78-98); MEAN PLATELET VOLUME 8.4 FL (7.4-10.4); MONOCYTES # (AUTO) 0.6 X10'3 (0-0.9); MONOCYTES % (AUTO) 8.6 % (2-12); NEUTROPHILS # (AUTO) 4.9 X10'3 (1.8-7.7); NEUTROPHILS % (AUTO) 70.4 % (42-75); PLATELET COUNT 206 X10'3 (140-440); RED BLOOD COUNT 3.61 X10'6 (4.70-6.10); RED CELL DISTRIBUTION WIDTH 15.7 % (11.5-14.5)
[2020-06-10 12:50] LABS: ALANINE AMINOTRANSFERASE 14 U/L (12-78); ALBUMIN 3.1 G/DL (3.4-5.0); ALBUMIN/GLOBULIN RATIO 0.7 (1.1-1.5); ALKALINE PHOSPHATASE 329 IU/L (46-116); ANION GAP 9 (8-16); ASPARTATE AMINO TRANSFERASE 18 U/L (10-37); BILIRUBIN,TOTAL 0.7 MG/DL (0.1-1.0); BLOOD UREA NITROGEN 20 MG/DL (7-18); BUN/CREATININE RATIO 6.7 (5.4-32.0); CALCIUM 8.6 MG/DL (8.5-10.1); CHLORIDE 98 MMOL/L (99-107); ETHANOL < 0.010 GM/DL (0.0-0.010); GLUCOSE 125 MG/DL (70-104); POTASSIUM 3.9 MMOL/L (3.5-5.1); SODIUM 139 MMOL/L (135-145); TOTAL CARBON DIOXIDE 32.3 MMOL/L (24-32); TOTAL PROTEIN 7.4 G/DL (6.4-8.2); eGFR 21 ML/MIN
--- NOTE | 2020-06-10 13:11 | NUR ---
PT IS AGGITATED AND STATED "I WANT TO GO HOME" PA ARREOLA NOTIFIED.
[2020-06-10 13:54] VITALS: BP 144/87
== END 2020-06-10 13:56 | disposition home or self-care (01) ==
LOC: ER 11:29
DX: R41.0 Disorientation, unspecified (principal); G43.909 Migraine, unspecified, not intractable, without status migrainosus; I11.0 Hypertensive heart disease with heart failure; I50.9 Heart failure, unspecified; E78.00 Pure hypercholesterolemia, unspecified; E11.9 Type 2 diabetes mellitus without complications; F15.90 Other stimulant use, unspecified, uncomplicated; Z86.73 Personal history of transient ischemic attack (TIA), and cerebral infarction without residual deficits; Z98.890 Other specified postprocedural states; Z88.8 Allergy status to other drugs, medicaments and biological substances; Z79.82 Long term (current) use of aspirin; Z79.4 Long term (current) use of insulin; Z79.899 Other long term (current) drug therapy
CPT/HCPCS: 36415; 70450; 80053; 80320; 83735; 85025; 85610; 93005; 99285